=== PATIENT | female | born 1990 | race American Indian/Alaskan Native ===

== ENCOUNTER 2017-01-20 20:58 | Emergency (ER) | payer OTHER, BC ==
[2017-01-21] MEDS ORDERED: NORCO 7.5/325 PO ONE (00:51)
[2017-01-21] MEDS ORDERED: FLEXERIL PO ONE (00:51)
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
[2017-01-21 03:05] VITALS: BP 113/74
== END 2017-01-21 02:30 | disposition home or self-care (01) ==
LOC: ED 20:58
DX: M54.2 Cervicalgia (principal); M54.5 Low back pain; V89.2XXA Person injured in unspecified motor-vehicle accident, traffic, initial encounter; Y93.9 Activity, unspecified; Y99.9 Unspecified external cause status; Y92.410 Unspecified street and highway as the place of occurrence of the external cause
CPT/HCPCS: 72040; 72100; 81025

== ENCOUNTER 2021-05-11 19:39 | Emergency (ER) | payer BC, OTHER ==
[2021-05-11 20:16] VITALS: BP 111/72
[2021-05-11] MEDS ORDERED: PROMETHAZINE 25 MG TAB PO ONE ×2 (20:34→23:40)
[2021-05-11] MEDS ORDERED: IBUPROFEN 600 MG TAB PO ONE ×2 (20:34→23:40)
[2021-05-11] MEDS ORDERED: BUTALB/ACETAMINOPHEN/CAFFEINE TAB PO ONE ×2 (20:34→23:40)
--- NOTE | 2021-05-11 20:54 | Emergency Department Report ---
ED Headache HPI - General Chief Complaint: High BP Stated Complaint: HEADACHE/BLOOD PRESSURE CONCERNS Source: patient Exam Limitations: no limitations - History of Present Illness Initial Comments: Patient is a 31-year-old -[place] female with no past medical history who presents to the ED with complaint of acute onset persistent intermittent intractable headache for the last 1 month, worse in the last 1 week. Patient states that the headache usually occurs persistently and is Characterized by tingling sensation all over her body. Patient states that prior to arrival in the ED she was asleep and felt a very sharp pain in her head which she likens to someone hitting her head with a blunt force, and that this woke her up and at the time she started having persistent tachycardia with elevated blood pressure. Patient states that she came to the ED for evaluation and to find out the etiology of her persistent headache. Patient denies dizziness, syncope, nausea and vomiting, chest pain, shortness of breath, fever, chills, cough, sore throat, change in vision, neck pain, facial tingling sensations, bilateral lower and upper extremity weakness, urinary or bowel incontinence, vaginal bleeding or vaginal discharge, and abdominal pain. Timing/Duration: increasing, waxing and waning Quality: severe, pressure, sharp, throbbing Head Injury Location: frontal, temporal Recent Head Trauma: no recent headache/trauma, frequent headaches Modifying Factors: improves with: rest Associated Symptoms: denies symptoms, numbness in legs/feet. denies: confusion, fatigue, facial pain, fever/chills, flushing, loss of consciousness, nausea/vomiting, nasal congestion, nasal drainage, seizures, sinus infection, stiff neck, vision changes, weakness Allergies/Adverse Reactions: Allergies No Known Allergies Allergy (Unverified 01/20/17 23:32) Home Medications: Ambulatory Orders Meloxicam [Mobic] 7.5 mg PO QDAY #5 tablet 01/21/17 methOCARBAMOL [Robaxin TAB] 500 mg PO TID #15 tab 01/21/17 Butalb/Acetamin/Caff 50-325-40 [Fioricet 50-325-40] 1 - 2 tab PO Q6HR PRN #15 tab 05/11/21 Ibuprofen [Motrin] 600 mg PO Q8H PRN #30 tablet 05/11/21 Promethazine [Phenergan] 25 mg PO Q6HR PRN #30 tab 05/11/21 ED Review of Systems ROS: Stated complaint: HEADACHE/BLOOD PRESSURE CONCERNS Other details as noted in HPI Constitutional: denies: chills, fever Eyes: denies: eye pain, eye discharge, vision change ENT: denies: ear pain, throat pain Respiratory: denies: cough, shortness of breath, wheezing Cardiovascular: denies: chest pain, palpitations Endocrine: no symptoms reported Gastrointestinal: denies: abdominal pain, nausea, vomiting, diarrhea Genitourinary: denies: urgency, dysuria, discharge Musculoskeletal: denies: back pain, joint swelling, arthralgia Skin: denies: rash, lesions Neurological: headache. denies: weakness, paresthesias Psychiatric: denies: anxiety, depression Hematological/Lymphatic: denies: easy bleeding, easy bruising ED Past Medical Hx - Social History Smoking Status: Never Smoker Substance Use Type: None - Medications Home Medications: Home Medications Medication Instructions Recorded Confirmed Last Taken Type Meloxicam [Mobic] 7.5 mg PO QDAY #5 tablet 01/21/17 Unknown Rx methOCARBAMOL [Robaxin TAB] 500 mg PO TID #15 tab 01/21/17 Unknown Rx Butalb/Acetamin/Caff 50-325-40 1 - 2 tab PO Q6HR PRN #15 tab 05/11/21 Unknown Rx [Fioricet 50-325-40] Ibuprofen [Motrin] 600 mg PO Q8H PRN #30 tablet 05/11/21 Unknown Rx Promethazine [Phenergan] 25 mg PO Q6HR PRN #30 tab 05/11/21 Unknown Rx ED Physical Exam - General Limitations: No Limitations General appearance: alert, in no apparent distress - Head Head exam: Present: atraumatic, normocephalic, normal inspection - Eye Eye exam: Present: normal appearance, PERRL, EOMI Pupils: Present: normal accommodation - ENT ENT exam: Present: normal exam, normal orophraynx, mucous membranes moist, TM's normal bilaterally, normal external ear exam - Neck Neck exam: Present: normal inspection, full ROM - Respiratory Respiratory exam: Present: normal lung sounds bilaterally. Absent: respiratory distress, wheezes, rales, chest wall tenderness, accessory muscle use, decreased breath sounds, prolonged expiratory - Cardiovascular Cardiovascular Exam: Present: regular rate, normal rhythm, normal heart sounds. Absent: systolic murmur, diastolic murmur, rubs, gallop - GI/Abdominal GI/Abdominal exam: Present: soft, normal bowel sounds. Absent: tenderness, guarding, rebound, hyperactive bowel sounds, hypoactive bowel sounds, organomegaly, bruit - Extremities Exam Extremities exam: Present: normal inspection, full ROM, normal capillary refill - Back Exam Back exam: Present: normal inspection, full ROM. Absent: tenderness, CVA tenderness (R), CVA tenderness (L), muscle spasm, paraspinal tenderness - Neurological Exam Neurological exam: Present: alert, oriented X3, CN II-XII intact, normal gait, reflexes normal - Psychiatric Psychiatric exam: Present: normal affect, normal mood, anxious - Skin Skin exam: Present: warm, dry, intact, normal color. Absent: rash ED Course Vital Signs 05/11/21 20:14 Temperature 98.7 F Pulse Rate 78 Respiratory 17 Rate Blood Pressure 111/72 [Right] O2 Sat by Pulse 100 Oximetry ED Medical Decision Making - Radiology Data Radiology results: report reviewed, image reviewed [place] [id number] Cat Scan Report Signed Patient: BRIEN AMOS MR#: [id number] : 1990 Acct:[id number] Age/Sex: 31 / F ADM Date: 05/11/21 Loc: ED Attending Dr: Ordering Physician: REJI JOSUE Date of Service: 05/11/21 Procedure(s): CT head/brain wo con Accession Number(s): [id number] cc: REJI JOSUE CT HEAD WITHOUT CONTRAST INDICATION / CLINICAL INFORMATION: Headache. TECHNIQUE: All CT scans at this location are performed using CT dose reduction for ALARA by means of automated exposure control. COMPARISON: None available. FINDINGS: HEMORRHAGE: None. EXTRA-AXIAL SPACES: Normal in size and morphology for the patient's age. VENTRICULAR SYSTEM: Normal in size and morphology for the patient's age. CEREBRAL PARENCHYMA: No significant abnormality. No acute territorial infarct. MIDLINE SHIFT OR HERNIATION: None. CEREBELLUM / BRAINSTEM: No significant abnormality. ORBITS: Normal as visualized. SOFT TISSUES of HEAD: No significant abnormality. CALVARIUM: No significant abnormality. PARANASAL SINUSES / MASTOID AIR CELLS: Normal as visualized. ADDITIONAL FINDINGS: None. IMPRESSION: 1. No acute intracranial abnormality. Signer Name: Knag Macdonald MD Signed: 05/11/2021 10:21 PM Workstation Name: [id number] Transcribed By: TL Dictated By: Kang Macdonadl MD Electronically Authenticated By: Kang Macdonald MD Signed Date/Time: 05/11/212220 DD/ 19 TD/TT: - Medical Decision Making This is a 31-year-old -[place] female with no past medical history who presents to the ED with complaint of acute onset persistent intermittent intractable headache for the last 1 month, worse in the last 1 week. Patient states that the headache usually occurs persistently and is Characterized by tingling sensation all over her body. Patient states that prior to arrival in the ED she was asleep and felt a very sharp pain in her head which she likens to someone hitting her head with a blunt force, and that this woke her up and at the time she started having persistent tachycardia with elevated blood pressure. Patient states that she came to the ED for evaluation and to find out the etiology of her persistent headache. In the ED, patient is alert and oriented x3 and is not in any distress. Patient is hemodynamically stable. Head CT scan without contrast showed no acute intracranial abnormalities or hemorrhage. Patient was treated in the ED for headache and discharged home on pain medications and advised to follow-up with her primary care physician in 5 to 7 days for reevaluation return to the ED immediately if symptoms get worse. - Differential Diagnosis Migraine headache; tension headache; sinus headache; anxiety; Critical care attestation.: If time is entered above; I have spent that time in minutes in the direct care of this critically ill patient, excluding procedure time. ED Disposition Clinical Impression: Anxiety as acute reaction to exceptional stress Migraine headache with aura Qualifiers: Status migrainosus presence: without status migrainosus Intractability: not intractable Qualified Code(s): G43.109 - Migraine with aura, not intractable, without status migrainosus Disposition: HOME / SELF CARE / HOMELESS Is pt being admited?: No Does the pt Need Aspirin: No Condition: Stable Additional Instructions: The head CT scan without contrast showed no acute intracranial abnormalities or hemorrhage. Your symptoms are likely due to migraine headache with aura, worsened which worsens you anxiety and which results in elevated heart rate and blood pressure. Therefore take medications as advised of migraine headache, d rink plenty of fluids, follow-up with your primary care physician in 5 to 7 days for reevaluation. Return to the ED immediately if symptoms get worse. Prescriptions: Butalb/Acetamin/Caff 50-325-40 [Fioricet 50-325-40] 1 - 2 tab PO Q6HR PRN #15 tab PRN Reason: Headache Ibuprofen [Motrin] 600 mg PO Q8H PRN #30 tablet PRN Reason: Pain Promethazine [Phenergan] 25 mg PO Q6HR PRN #30 tab PRN Reason: Nausea Referrals: [facility] [Provider Group] - 3-5 Days SHAGUFTA CHEN MD [Staff Physician] - 3-5 Days Time of Disposition: 22:50 Print Language: VIETNAMESE
--- NOTE | 2021-05-11 22:25 | Cat Scan Report ---
CT HEAD WITHOUT CONTRAST INDICATION / CLINICAL INFORMATION: Headache. TECHNIQUE: All CT scans at this location are performed using CT dose reduction for ALARA by means of automated e xposure control. COMPARISON: None available. FINDINGS: HEMORRHAGE: None. EXTRA-AXIAL SPACES: Normal in size and morphology for the patient's age. VENTRICULAR SYSTEM: Normal in size and morphology for the patient's age. CEREBRAL PARENCHYMA: No significant abnormality. No acute territorial infarct. MIDLINE SHIFT OR HERNIATION: None. CEREBELLUM / BRAINSTEM: No significant abnormality. ORBITS: Normal as visualized. SOFT TISSUES of HEAD: No significant abnormality. CALVARIUM: No significant abnormality. PARANASAL SINUSES / MASTOID AIR CELLS: Normal as visualized. ADDITIONAL FINDINGS: None. IMPRESSION: 1. No acute intracranial abnormality. Signer Name: Kang Macdonald MD Signed: 05/11/2021 10:21 PM Workstation Name: [id number]
[2021-05-11] MEDS ORDERED: hydrOXYzine PAMOATE 25 MG CAP PO ONE (23:31)
== END 2021-05-11 23:46 | disposition home or self-care (01) ==
LOC: ED 19:39
DX: G43.109 Migraine with aura, not intractable, without status migrainosus (principal); F41.1 Generalized anxiety disorder; F43.0 Acute stress reaction
CPT/HCPCS: 70450; 99283; Q0169